=== PATIENT | female | born 1960 | race Two or more races ===

== ENCOUNTER 2017-08-17 12:56 | Outpatient (CLI) | payer OTHER | END 2017-08-17 13:05 | disposition home or self-care (01) | LOC: RAD 12:56 | DX: M54.5 Low back pain (principal); M25.561 Pain in right knee ==

== ENCOUNTER 2018-12-29 17:14 | Outpatient (CLI) | payer OTHER | END 2018-12-29 17:49 | disposition home or self-care (01) | LOC: RAD 17:14 | DX: M25.562 Pain in left knee (principal) ==

== ENCOUNTER 2020-06-14 12:06 | Outpatient (CLI) | payer OTHER | END 2020-06-14 12:39 | disposition home or self-care (01) | LOC: RAD 12:06 | PROVIDERS: ATTEND Orthopaedic Surgery | DX: M20.11 Hallux valgus (acquired), right foot (principal); M20.41 Other hammer toe(s) (acquired), right foot ==

== ENCOUNTER 2021-01-21 14:39 | Outpatient (CLI) | payer OTHER | END 2021-01-21 14:40 | disposition home or self-care (01) | LOC: NUCLEAR 14:39 | PROVIDERS: ATTEND Orthopaedic Surgery | DX: M81.0 Age-related osteoporosis without current pathological fracture (principal) ==

== ENCOUNTER 2021-01-24 06:59 | Outpatient (CLI) | payer OTHER | END 2021-01-24 07:01 | disposition home or self-care (01) | LOC: LAB 06:59 | PROVIDERS: ATTEND Orthopaedic Surgery | DX: M85.89 Other specified disorders of bone density and structure, multiple sites (principal); E88.89 Other specified metabolic disorders; M81.8 Other osteoporosis without current pathological fracture; E83.42 Hypomagnesemia; E56.1 Deficiency of vitamin K ==